=== PATIENT | male | born 1960 | race Caucasian/White ===

== ENCOUNTER 2017-12-05 23:36 | Observation (INO) | payer BC ==
[2017-12-06] MEDS ORDERED: Ondansetron ODT TAB* 4 MG SL PRN (01:03)
[2017-12-06] MEDS ORDERED: Piperacillin/Tazobac ADVAN(*) 3.375 GM in NS 0.9% 100 ML* 100 ML IVPB ONE (01:03)
[2017-12-06] MEDS ORDERED: Acetaminophen TAB* 325 MG PO PRN ×2 (01:03→05:28)
[2017-12-06] MEDS ORDERED: Morphine VIAL* 4 MG/ML VIAL (1 ml vial) IV PRN (01:03)
[2017-12-06] MEDS: NS 0.9% 1000 ML* 1,000 ML IV SCH ×3 (01:11→19:16)
[2017-12-06] MEDS ORDERED: Zosyn per Pharmacy* NOTE FOLLOW UP SCH (02:00)
[2017-12-06] MEDS ORDERED: fentaNYL* 50 MCG/ML 2 ML VIAL (100 MCG VIAL) ONE ×3 (05:15→06:41)
[2017-12-06] MEDS ORDERED: Midazolam* 1 MG/ML 5 ML VIAL (5 MG) ONE (05:16)
[2017-12-06] MEDS ORDERED: Rocuronium* 10 MG/ML VIAL ONE (05:16)
[2017-12-06] MEDS ORDERED: Succinylcholine* 20 MG/ML 10 ML VIAL ONE (05:19)
[2017-12-06] MEDS ORDERED: Propofol* 10 MG/ML 20 ML BTL IV PUSH ONE (05:19)
[2017-12-06] MEDS ORDERED: DiMENhydriNATE IV* 50 MG/ML VIAL ONE (05:19)
[2017-12-06] MEDS ORDERED: Ketorolac INJ* 30 MG/ML 1 ML VIAL ONE (05:19)
[2017-12-06] MEDS ORDERED: Dexamethasone IV* 4 MG/ML 1 ML (4 MG) ONE (05:19)
[2017-12-06] MEDS ORDERED: Lidocaine 2% PF * 5 ML VIAL ONE (05:20)
[2017-12-06] MEDS ORDERED: HYDROmorphone INJ* 1 MG/ML CARPUJECT SYRINGE IV PRN (05:28)
[2017-12-06] MEDS ORDERED: Naloxone* 0.4 MG/ML 1 ML VIAL IV PRN (05:28)
[2017-12-06] MEDS ORDERED: oxyCODONE TAB* 5 MG TAB PO PRN (05:28)
[2017-12-06] MEDS ORDERED: Ondansetron INJ* 2 MG/ML VIAL IV PRN (05:28)
[2017-12-06] MEDS ORDERED: Bupivacaine 0.5% SDV PF* 30ML VIAL ONE (05:33)
[2017-12-06] MEDS: ZOSYN 3.375 GM Q8H per EXTENDED INFUSION IVPB SCH ×8 (05:47→22:51)
[2017-12-06] MEDS ORDERED: Glycopyrrolate IV* 0.2 MG/ML 1 ML VIAL ONE (07:23)
[2017-12-06] MEDS ORDERED: Neostigmine Methylsulfate* 1 MG/ML 10 ML VIAL (1 mg/ml) ONE (07:23)
[2017-12-06] MEDS: Ketorolac INJ* 30 MG/ML 1 ML VIAL IV PUSH PRN ×3 (07:30→19:42)
--- NOTE | 2017-12-06 07:46 | BRIEFOPN ---
Brief Operative Note - Surgery Procedures: Procedures OPERATIVE REPORT PRE-OP: Acute appendicitis POST-OP:Acute perforated appendicitis PROCEDURE: Laparoscopic appendectomy SURGEON: MD Roman ANESTHESIA:Local , General with Dr. Thorne and Dr. Molina ASST: none IVF: 2 liter of crystalloid EBL: min SPECIMEN: appendix DRAIN: #10 NANETTE WOUND CLASS: 4 COMPLICATIONS: none TO PACU
[2017-12-06] MEDS ORDERED: Citalopram TAB* 20 MG PO SCH (09:00)
[2017-12-06 09:19] LABS: EGFR Non-African American 82.7 (>60)
[2017-12-06] MEDS: oxyCODONE/Acetamin 5/325 MG* TAB PO PRN ×3 (13:21→23:07)
[2017-12-06] MEDS: Heparin VIAL(*) 5000 UNITS/ML VIAL (FIVE THOUSAND) SUBCUT SCH ×2 (13:21→22:54)
--- NOTE | 2017-12-06 15:36 | HP ---
CC: Dr. Biju Gordon at [facility]. * HISTORY AND PHYSICAL: DATE OF ADMISSION: 12/06/17 CHIEF COMPLAINT: Right lower quadrant abdominal pain. HISTORY OF PRESENT ILLNESS: Mr. Delon Coker is a very pleasant 56-year-old gentleman who developed some generalized abdominal pain on Sunday evening. The pain became worse yesterday and became more localized in the right lower quadrant. It became somewhat uncomfortable for him and when it was worsening in severity, he presented to the [facility] Emergency Room last night. There he was noted to be afebrile with laboratory values including a normal white blood cell count and chemistry values. His INR was 0.92. He underwent a CAT scan of the abdomen and pelvis. I did review these images. This shows findings consistent with acute appendicitis with thickening and dilation of the appendix with an appendicolith as well as periappendiceal stranding consistent with acute appendicitis. There is no evidence of extraluminal air, abscess, or significant fluid collection. The remainder of the study was remarkable for hepatic cysts. The gallbladder appeared to be unremarkable. He was transferred to [facility] early this morning with plans for appendectomy. PAST MEDICAL HISTORY: 1. Hypertension. 2. Anxiety. 3. Depression. PAST SURGICAL HISTORY: 1. Low back surgery. 2. Left total hip replaced. 3. Right total knee replacement. MEDICATIONS: Include: 1. Ativan 1 mg p.o. q.h.s. 2. Lexapro 10 mg p.o. q.h.s. 3. Lisinopril 10 mg p.o. daily in the morning. ALLERGIES: He is allergic to CIPROFLOXACIN. 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 He is , but lives with his son and his family. He does not use tobacco or alcohol. He does not exercise regularly. REVIEW OF SYSTEMS: Cerebrovascular: No dizziness or visual disturbances. Cardiovascular: No chest pain or shortness of breath. Pulmonary: No wheezing or hemoptysis. GI: As per above. He has had no diarrhea or change in bowel habits. He has had no vomiting, he had some slight nausea with anorexia as per above. PHYSICAL EXAMINATION GENERAL: He is a well-developed, well-nourished, slightly overweight male, in no apparent distress. He is awake, alert, conversant, and quite pleasant. VITAL SIGNS: Temperature 98.2, pulse 72, blood pressure 110/60, respiration 16. HEENT: Sclerae anicteric. Oral mucosa was slightly dry. LUNGS: Clear to auscultation with normal respiratory effort. HEART: Regular rate and rhythm without murmurs, rubs or gallops. ABDOMEN: Soft and slightly distended. He had normoactive bowel sounds throughout. There are no prior surgical incisions or hernias. He has tenderness in the right lower quadrant with some rigidity and involuntary guarding. PSYCHIATRIC: He is awake, alert and oriented x3. He has normal judgment and insight. IMPRESSION: Acute appendicitis. PLAN: I did long discussion with the patient concerning his history, physical exam, and the results of the workup, all of which are consistent with acute appendicitis without evidence of perforation or abscess. He does have an appendicolith within the appendix, what appears to be at the base. We discussed appendectomy as the standard of care in the [facility] and I recommended we pursue with a laparoscopy appendectomy this morning. We also discussed nonoperative management of acute appendicitis with IV and subsequent oral antibiotics; however, I do not believe that he would not be an acceptable candidate at this point with the appendicolith at the base. I suspect this would be a failure of antibiotics requiring operation and after our discussion, he agrees and would like to proceed with surgery. The risks of, but not limited to bleeding, infection, intraabdominal abscess formation, injury to peritoneal and retroperitoneal structures, possibility of an open procedure, risk of general anesthesia, deep vein thrombosis, and possible hospital stays and recovery times and work restrictions were also discussed. His questions were answered to the best of my ability. We will plan here this morning. The patient has been kept n.p.o. and started on IV fluids and has received intravenous antibiotics. [id number]/[facility] #: [id number] [facility] HOSPITALNatalie
[2017-12-07] MEDS: oxyCODONE/Acetamin 5/325 MG* TAB PO PRN ×4 (04:20→22:16)
[2017-12-07] MEDS: NS 0.9% 1000 ML* 1,000 ML IV SCH (04:36)
[2017-12-07] MEDS: ZOSYN 3.375 GM Q8H per EXTENDED INFUSION IVPB SCH ×6 (06:28→22:13)
[2017-12-07] MEDS: Heparin VIAL(*) 5000 UNITS/ML VIAL (FIVE THOUSAND) SUBCUT SCH ×3 (06:30→22:14)
--- NOTE | 2017-12-07 08:42 | OP ---
CC: Dr. Biju Gordon, [facility].* DATE OF OPERATION: 12/06/17 - ROOM #341 DATE OF : 60 SURGEON: Earle Owens MD PLANT CYTOLOGIST: None ANESTHESIOLOGIST: Dr. Thorne and Dr. Molina. ANESTHESIA: General with local PRE-OP DIAGNOSIS: Acute appendicitis. POST-OP DIAGNOSIS: Acute perforated appendicitis. OPERATIVE PROCEDURE: Laparoscopic appendectomy. ESTIMATED BLOOD LOSS: Minimal. IV FLUIDS: 1 L of crystalloid. SPECIMEN: Appendix. DRAINS: #10 NANETTE drain. WOUND CLASSIFICATION: 4. COMPLICATIONS: None. FINDINGS: The patient had a acute appendicitis with an fecalith with an area of perforation in the proximal third and appendix with spillage of some stool but no abscess noted. BRIEF HISTORY: Mr. Delon Coker is a 56-year-old gentleman presented to the emergency room at [facility] with almost 36 hours of abdominal pain becoming localized in the right lower quadrant. He has normal white blood cell count but a CT scan that showed findings consistent with acute appendicitis with a fecalith and towards the base of the appendix as well as the appendiceal wall thickening and periappendiceal inflammation without abscess. He was transferred to [facility] for surgical care and is now to undergo an urgent appendectomy. DESCRIPTION OF PROCEDURE: Written informed consent was obtained, the abdomen was marked with indelible ink, and preoperative antibiotics were administered. The patient was taken to the operating room and placed in the supine position. Sequential compression devices and a warming blanket were applied. General anesthesia was administered and the abdomen was prepped and draped in usual sterile fashion. A time-out verification was completed. Initially, a small transverse incision was made just above the umbilicus at the midline and the peritoneal cavity was entered under direct vision. A 12-mm blunt port was inserted and the abdomen was insufflated to 15 mmHg. Under direct vision a 5 mm port was placed in the left lower abdominal wall and a second 5 mm port was placed in the suprapubic position. Cecum and terminal ileum were identified. The cecum itself appeared to be unremarkable as well as the terminal ileum. Terminal ileum was normal. There was inflammation lateral to the terminal ileum as it entered the cecum and some of the fatty appendages from the terminal ileum as well as the peritoneal attachments laterally were inflamed and as I peeled the small bowel off the inflammatory process, I was able to identify the appendix which was obviously inflamed consistent with acute appendicitis at its distal half. The mesentry was quite edematous and inflamed. I was able to grasp the tip of the appendix and sequentially start dividing the mesoappendix with the LigaSure from distal to proximal. It was necessary to free of some of the lateral attachments to some of the lateral peritoneal attachment to further expose more proximally in the appendix and at this point I identified an area somewhere probably in the proximal third of the appendix and this came up into view. It was obvious that there was gangrenous change with spillage of the fecalith perforation. I was able to gather all of the small fecal balls that fell and there was nothing left behind in terms of contamination. I was then able to continue with careful meticulous dissection down to the base of the appendix at the cecum. The base of the appendix was appeared to be viable and the cecum was somewhat edematous but also viable and pliable. At this point, I felt that due to the relative immobility of the cecum that a stapler may be difficult to advance down to the base of the cecum to divide the appendiceal stump and thus I passed a 0 Vicryl, Endoloop down to the base of the appendix at the cecum and tied this in the usual fashion to ligate the appendix and then this was divided with scissors and placed in an EndoCatch bag and brought out through the umbilical incision. The LigaSure sat nicely and once again was noted to be a viable tissue. Hemostasis was assured and I irrigated the right lower quadrant and pelvis with almost 1.5 L of saline. A #10 NANETTE drain was placed in the right lower quadrant and brought out through a separate stab wound on the right lower quadrant the abdominal wall. This was sutured to the skin with an interrupted 3-0 nylon suture. All ports were then removed under direct vision of the camera. There was no abdominal wall bleeding. The umbilical fascia was closed with interrupted 0 Vicryl suture. The skin at the other 3 incisions was approximated with a stapling device. Sterile dressings were applied. The patient tolerated the procedure well, was taken to the recovery room in stable condition. [id number]/[facility] #: [id number] [facility] CENTERNatalie
[2017-12-07] MEDS: Ketorolac INJ* 30 MG/ML 1 ML VIAL IV PUSH PRN ×2 (09:22→20:06)
[2017-12-07] MEDS: Lisinopril TAB* 10 MG PO SCH ×2 (09:22→09:28)
[2017-12-07] MEDS: Citalopram TAB* 20 MG PO SCH (09:22)
--- NOTE | 2017-12-07 16:58 | PN ---
Progress Note - Progress Note Date of Service: 12/07/17 SOAP: Subjective: Feels better-tolerating full liquids Passing flatus and ambulating in halls Pain is well controlled Objective: Temp Pulse Resp BP Pulse Ox 98.1 F 72 18 100/61 98 12/07/17 15:39 12/07/17 15:39 12/07/17 16:37 12/07/17 15:39 12/07/17 15:39 Intake & Output 12/05/17 12/06/17 12/07/17 12/08/17 06:59 06:59 06:59 06:59 Intake Total 100 6719 1555 Output Total 1000 2770 900 Balance -900 3949 655 Weight 230 lb Intake: IV Fluids 100 4751 1105 0.9 1000 NS (0.9%) 1936 NS 100ML, Zosyn 3.375G 100 lr 700 IVPB 218 ABX - ZOSYN 218 Oral 0 1750 450 Output: NANETTE #1 430 Urine 1000 2340 900 PEX: Comfortable Lungs are clear Abd is soft and slightly distended. Bowel sounds are present. NANETTE in place- serosanguinous fluid in bulb Incisions CDI Ext without edema Assessment: POD#2 s/p lap appy for perforated appendicitis--doing well Plan: Advance diet IV abx through tomorrow AM Plan d/c tomorrow AM on 5 days of oral antibiotics, d/c NANETTE drain prior to discharge. Office follow up
[2017-12-08] MEDS: Heparin VIAL(*) 5000 UNITS/ML VIAL (FIVE THOUSAND) SUBCUT SCH (06:13)
[2017-12-08] MEDS: ZOSYN 3.375 GM Q8H per EXTENDED INFUSION IVPB SCH ×2 (06:14)
[2017-12-08 07:50] VITALS: BP 121/66
[2017-12-08] MEDS: oxyCODONE/Acetamin 5/325 MG* TAB PO PRN (07:51)
--- NOTE | 2017-12-08 08:30 | PN ---
Progress Note - Progress Note Date of Service: 12/08/17 SOAP: Subjective: Pain controlled. No N/V. +flatus. "Ready to go home." Objective: Vital Signs Temp 97.9 F 12/08/17 07:47 Pulse 79 12/08/17 07:47 Resp 20 12/08/17 07:51 BP 121/66 12/08/17 07:47 Pulse Ox 94 12/08/17 07:47 Gen: NAD Abd: obese; soft with mild tenderness at incis c/d/i; NANETTE SS (removed) Intake & Output 12/07/17 12/08/17 12/08/17 18:59 06:59 18:59 Intake Total 1555 847 Output Total 1215 570 Balance 340 277 Intake: IV Fluids 1105 327 ABX - ZOSYN 327 Oral 450 520 Output: NANETTE #1 15 20 Urine 1200 550 Assessment: s/p lap appy for perf appendicitis. Stable for d/c. Plan: D/c home with augmentin po. RTO .
[2017-12-08] MEDS: Citalopram TAB* 20 MG PO SCH (09:20)
[2017-12-08] MEDS: Lisinopril TAB* 10 MG PO SCH (09:23)
== END 2017-12-08 10:20 | disposition home or self-care (01) ==
LOC: SSU 12-06 00:56
PROVIDERS: ADMIT Surgery; ATTEND Surgery
PROC: 0DTJ4ZZ Resection of Appendix, Percutaneous Endoscopic Approach (ICD-10-PCS; principal; 2017-12-06 06:00)
DX: K35.2 Acute appendicitis with generalized peritonitis (principal); I10 Essential (primary) hypertension; F41.9 Anxiety disorder, unspecified; F32.9 Major depressive disorder, single episode, unspecified; Z79.899 Other long term (current) drug therapy; R10.84 Generalized abdominal pain
CPT/HCPCS: 36415; 82565; 84520; 85730; 88304; 96372; 96374; 96376; A9270-GY; C1776; G0378; J0330; J1100; J1240; J1644; J1885; J2250; J2543; J2704; J2710; J3010